=== PATIENT | male | born 1970 | race Caucasian/White ===

== ENCOUNTER 2021-07-28 06:47 | Day surgery (SDC) | payer BC ==
[~2021-07-28 06:47] MED LIST: Sodium Chloride 0.9% 10 ML Syringe FLUSH PRN
[2021-07-28] MEDS ORDERED: Midazolam 1 MG/ML 2 ML SDV IV ONE (06:48)
[2021-07-28] MEDS ORDERED: Propofol 200 MG/20 ML SDV IV ONE (06:48)
[2021-07-28] MEDS: Lactated Ringers 1,000 ML IV SCH (07:18)
== END 2021-07-28 09:28 | disposition home or self-care (01) ==
LOC: FB.SDS 06:47
PROVIDERS: ATTEND Surgery
DX: Z12.11 Encounter for screening for malignant neoplasm of colon (principal); K62.1 Rectal polyp; E78.00 Pure hypercholesterolemia, unspecified; I10 Essential (primary) hypertension; E66.9 Obesity, unspecified; F41.9 Anxiety disorder, unspecified; Z87.891 Personal history of nicotine dependence; Z79.899 Other long term (current) drug therapy; Z98.890 Other specified postprocedural states; Z68.38 Body mass index [BMI] 38.0-38.9, adult
CPT/HCPCS: 00812-QZ; 88305; J2250; J2704; J7120